=== PATIENT | male | born 1970 | race Caucasian/White ===

== ENCOUNTER 2017-11-09 21:53 | Emergency (ER) | payer SELFPAY ==
[~2017-11-09] VITALS: Ht 175.3 cm; Wt 84.8 kg
[2017-11-09 22:19] VITALS: BP 154/87
[2017-11-09] MEDS ORDERED: IBUPROFEN 400 MG TABLET PO ONE (23:30)
[2017-11-09] MEDS ORDERED: IBUPROFEN 400 MG TABLET ONE (23:44)
[2017-11-10] MEDS ORDERED: HYDROCODONE/APAP 5/325MG 1 EACH TABLET PO ONE (02:00)
== END 2017-11-10 02:53 | disposition home or self-care (01) ==
LOC: ER 21:58
DX: S52.125A Nondisplaced fracture of head of left radius, initial encounter for closed fracture (principal); G56.03 Carpal tunnel syndrome, bilateral upper limbs; W01.0XXA Fall on same level from slipping, tripping and stumbling without subsequent striking against object, initial encounter; Y93.89 Activity, other specified; Y92.89 Other specified places as the place of occurrence of the external cause; Y99.8 Other external cause status
CPT/HCPCS: 73080 ×2; 73110 ×2; 73200 ×2; 73564; 99284; A4606; Z7610